=== PATIENT | female | born 1995 | race African-American/Black ===

== ENCOUNTER 2017-04-27 07:18 | Emergency (ER) | payer SELFPAY ==
[2017-04-27 07:35] VITALS: BP 128/82; PULSE 85; TEMP 97.5; BMI 17.2
[2017-04-27] MEDS ORDERED: SUCRALFATE 1 GM TABLET (FP) PO ONE (08:01)
[2017-04-27] MEDS ORDERED: FAMOTIDINE 20 MG/50 ML IVPB 50 ML IVPB ONE ×2 (08:01→08:47)
[2017-04-27] MEDS ORDERED: MAG HYDROX/AL HYDROX/SIMETH 30 ML UNIT-DOSE CUP PO ONE (08:02)
--- NOTE | 2017-04-27 08:13 | PDOC ---
History of Present Illness - General History Source: Patient, Family - History of Present Illness Timing/Duration: reports: other (this am) Abdominal Pain Onset Location: reports: other (upper abdomen) <Johnny Tomas - Last Filed: 04/27/17 10:05> <Hu Soto - Last Filed: 04/27/17 17:40> - General Chief Complaint: Pain Stated Complaint: ABDOMINAL PAIN Time Seen by Provider: 04/27/17 07:47 Past History - Past Medical History GI Disorders: Yes (ULCER) - Psycho/Social/Smoking Cessation Hx Suicidal Ideation: No Smoking History: Never smoked Information on smoking cessation initiated: No <Nicole TomasMohsenJacquie - Last Filed: 04/27/17 10:05> <Hu Soto - Last Filed: 04/27/17 17:40> - Past Medical History Allergies/Adverse Reactions: Allergies Allergy/AdvReac Type Severity Reaction Status Date / Time No Known Allergies Allergy Verified 04/27/17 07:35 Review of Systems - Review of Systems Constitutional: No: Chills, Fever, Malaise, Weakness, Unintentional Wgt. Loss Respiratory: No: Cough ABD/GI: No: Blood Streaked Bowels, Diarrhea, Nausea, Vomiting, Tarry Stools <Nicole TomasMohsenJacquie Last Filed: 04/27/17 10:05> *Physical Exam - Vital Signs Last Vital Signs Temp Pulse Resp BP Pulse Ox 97.5 F L 85 18 128/82 100 04/27/17 07:33 04/27/17 07:33 04/27/17 07:33 04/27/17 07:33 04/27/17 07:33 - Physical Exam General Appearance: Yes: Appropriately Dressed. No: Apparent Distress HEENT: positive: Normal Voice Neck: positive: Supple Respiratory/Chest: positive: Lungs Clear, Normal Breath Sounds. negative: Respiratory Distress Cardiovascular: positive: Regular Rate, S1, S2 Gastrointestinal/Abdominal: positive: Soft. negative: Tender Rectal Exam: positive: other (trace brown stool, guaiac neg). negative: melena , hemorrhoids Extremity: positive: Normal Inspection Integumentary: positive: Dry, Warm Neurologic: positive: Fully Oriented, Alert, Normal Mood/Affect <Nicole TomasMohsenJacquie Last Filed: 04/27/17 10:05> - Vital Signs Last Vital Signs Temp Pulse Resp BP Pulse Ox 97.5 F L 85 18 128/82 100 04/27/17 07:33 04/27/17 07:33 04/27/17 07:33 04/27/17 07:33 04/27/17 07:33 <Hu Soto - Last Filed: 04/27/17 17:40> ED Treatment Course - LABORATORY CBC & Chemistry Diagram: 04/27/17 08:00 04/27/17 08:00 <Johnny Tomas - Last Filed: 04/27/17 10:05> - LABORATORY CBC & Chemistry Diagram: 04/27/17 08:00 04/27/17 08:00 - ADDITIONAL ORDERS Additional order review: Laboratory Results 04/27/17 04/27/17 04/27/17 08:05 08:01 08:00 INR 1.11 Sodium Potassium Chloride Carbon Dioxide Anion Gap BUN Creatinine Creat Clearance w eGFR Random Glucose Calcium Total Bilirubin AST ALT Alkaline Phosphatase Total Protein Albumin Urine HCG, Qual Negative Stool Occult Blood Negative Blood Type Antibody Screen 04/27/17 04/27/17 08:00 08:00 INR Sodium 138 Potassium 4.4 Chloride 106 Carbon Dioxide 24 Anion Gap 8 BUN 7 Creatinine 0.6 Creat Clearance w eGFR > 60 Random Glucose 83 Calcium 8.9 Total Bilirubin 0.7 AST 20 ALT 18 Alkaline Phosphatase 50 Total Protein 7.1 Albumin 3.7 Urine HCG, Qual Stool Occult Blood Blood Type AB POSITIVE Antibody Screen Negative 04/27/17 08:00 RBC 4.98 MCV 74.1 L MCHC 33.4 RDW 14.7 MPV 7.0 L Neutrophils % 43.7 Lymphocytes % 42.3 H Monocytes % 10.1 Eosinophils % 2.3 Basophils % 1.6 - Medications Given in the ED: ED Medications Discontinued Medications Generic Name Dose Route Start Last Admin Trade Name Freq PRN Reason Stop Dose Admin Al Hydroxide/Mg Hydroxide 30 ml 04/27/17 08:02 04/27/17 08:27 Mylanta Oral Suspension - PO 04/27/17 08:03 30 ml ONCE ONE Administration Famotidine/Sodium Chloride 50 mls @ 100 mls/hr 04/27/17 08:01 04/27/17 09:04 Pepcid 20 Mg Premixed Ivpb - IVPB 04/27/17 08:30 100 mls/hr ONCE ONE Administration Sucralfate 1 gm 04/27/17 08:01 04/27/17 08:27 Carafate - PO 04/27/17 08:02 1 gm ONCE ONE Administration <Hu Soto - Last Filed: 04/27/17 17:40> Medical Decision Making - Medical Decision Making 04/27/17 08:05 21-year-old female, recently moved to the [facility] from [facility] and endorses history of gastric ulcer that was diagnosed on endoscopy while residing in [facility] , was on "antacid" in the past, has almost daily upper abdominal pain which has not changed from baseline, presents this a.m. with complaint that she started "spitting" up "black phlegm" this a.m. No history of similar episode in the past. Denies change in bowel movements, melena, hematochezia, nausea, vomiting , fever or chills. No dizziness or weakness. Denies hemoptysis, night sweats, weight loss, f/c See exam R/o GIB Endorses h/o gastric ulcer Not currently on meds Spitting up black phlegm this am but denies true hematemesis and no melena, BRBPR or hemoptysis (recent travel from [place]) Stable in ED w/ diffuse ttp on abd exam, no melena, BRBPR w/ guaiac stool neg -labs -GI cocktail including sucralfate -reassess 04/27/17 09:24 04/27/17 10:08 Labs and CXR unremarkable. Pt reports pain better w/ meds. Will dc w/ GI f/u <Johnny Tomas - Last Filed: 04/27/17 10:05> - Medical Decision Making 04/27/17 17:40 The patient was seen and evaluated in conjunction with HEIDI Tomas under my direct supervision, ancillary studies were reviewed. I agree with the plan as outlined by HEIDI Tomas. <Hu Soto - Last Filed: 04/27/17 17:40> *DC/Admit/Observation/Transfer <Johnny Tomas - Last Filed: 04/27/17 10:05> <Hu Soto - Last Filed: 04/27/17 17:40> Diagnosis at time of Disposition: Abdominal pain Qualifiers: Abdominal location: upper abdomen, unspecified Qualified Code(s): R10.10 - Upper abdominal pain, unspecified - Discharge Dispostion Disposition: HOME Condition at time of disposition: Improved - Referrals Referrals: Ric Kelley MD [Staff Physician] - - Patient Instructions Additional Instructions: Your labs are normal today. There is no evidence of bleeding. Please follow- up with Dr. Kelley of GI.
[2017-04-27] MEDS ORDERED: SUCRALFATE 1 GM TABLET (FP) ONE (08:25)
[2017-04-27] MEDS ORDERED: MAG HYDROX/AL HYDROX/SIMETH 30 ML UNIT-DOSE CUP ONE (08:26)
[2017-04-27 09:10] LABS: BASOPHIL 1.6 % (0-2.0); EOSINOPHIL 2.3 % (0-4.5); MCH 24.8 pg (25.7-33.7); MCHC 33.4 g/dl (32.0-36.0); MEAN CELL VOLUME 74.1 fl (80-96); NEUTROPHILS 43.7 % (42.8-82.8); PLATELET COUNT 346 K/MM3 (134-434); RDW 14.7 % (11.6-15.6); WHITE BLOOD COUNT 5.3 K/mm3 (4.0-10.0)
[2017-04-27 09:22] LABS: INR 1.11 (0.82-1.09); PROTHROMBIN TIME (PATIENT) 12.2 SEC (9.98-11.88)
[2017-04-27 09:36] LABS: ALBUMIN 3.7 g/dl (3.4-5.0); ANION GAP 8 (8-16); CALCIUM 8.9 mg/dL (8.5-10.1); CO2 24 mmol/L (21-32); CREATININE 0.6 mg/dL (0.55-1.02); GLUCOSE,RANDOM 83 mg/dL (74-106); SGOT/AST 20 U/L (15-37); SGPT/ALT 18 U/L (12-78)
[2017-04-27 09:38] LABS: ALK PHOS 50 U/L (45-117); BILIRUBIN,TOTAL 0.7 mg/dL (0.2-1.0); TOT PROT 7.1 g/dl (6.4-8.2)
== END 2017-04-27 10:26 | disposition home or self-care (01) ==
LOC: JER 07:18
PROC: 3E033GC Introduction of Other Therapeutic Substance into Peripheral Vein, Percutaneous Approach (ICD-10-PCS; principal; 2017-04-27)
DX: R10.10 Upper abdominal pain, unspecified (principal); Z87.19 Personal history of other diseases of the digestive system
CPT/HCPCS: 36415; 71010-TC; 80053; 82272; 84703; 85025; 85610; 86850; 86900; 86901; 99282-25